=== PATIENT | female | born 1955 | race Caucasian/White ===

== ENCOUNTER 2016-10-30 10:28 | Day surgery (SDC) | payer BC ==
--- NOTE | ~2016-10-30 | OP ---
Record Of Operation [facility] [address] [place]. [address] NAME: ANABEL BARAHONA : 59 STATUS : [place] [facility] [place] PAT#: [id number] AGE: 61 ADM/REG DATE : 10/30/16 MR#: [id number] REPORT SERV DATE: 10/30/16 DICTATED BY: MOSHE RO DATE: 10/30/16 REPORT STATUS : Draft TRANSCRIBED BY: MODL DATE: 10/30/16 DATE OF PROCEDURE: 10/30/2016 PREOPERATIVE DIAGNOSES: 1. Left shoulder rotator cuff tear. 2. Left shoulder AC joint arthritis. 3. SLAP tear. POSTOPERATIVE DIAGNOSES: 1. Left shoulder rotator cuff tear. 2. Left shoulder AC joint arthritis. 3. SLAP tear. PROCEDURES: 1. Left shoulder arthroscopic rotator cuff repair. 2. Left shoulder arthroscopic distal clavicle resection. 3. Arthroscopic subacromial decompression. 4. Arthroscopic labral debridement. SURGEON: Moshe Ro MD. ANESTHESIA: General and preoperative block. SPECIMEN: None. ANTIBIOTICS: Ancef given prior to incision. HISTORY: The patient is a 61-year-old female with longstanding history of left shoulder pain. Treated conservatively, and she failed conservative treatment. We then obtained an MRI which showed a partial thickness rotator cuff tear. It was almost a full-thickness tear. We discussed the risks and benefits of the surgery with her as well as AC joint arthritis and she elected to proceed. We discussed the risks including cardiopulmonary complication, anesthesia, damage to surrounding tissues, failure to heal, and the continued pain were discussed. After discussing all of these risks, she elected to proceed. OPERATIVE NOTE: The patient was seen in the preoperative area, consented, and marked. We answered all the questions she had to her satisfaction. She has had a preoperative block and then taken back to the operative suite. We placed her in supine position. Underwent general anesthesia and then placed her in the beach chair position. We prepped and draped the left arm in sterile fashion then paused to perform a time-out confirming correct patient, procedure, diagnosis, and extremity. I made a standard posterior portal into the shoulder and then made an anterior portal based on the spinal needle localization. Once in the shoulder joint, her glenohumeral cartilage was intact on the humerus and the glenoid. She had a small 2 type SLAP tear which I debrided with the shaver. She also had anterior labral fraying which I debrided with the Record Of Operation [facility] [address] [address] NAME: ANABEL BARAHONA : 59 STATUS : [place] [facility] [place] PAT#: [id number] AGE: 61 ADM/REG DATE : 10/30/16 MR#: [id number] REPORT SERV DATE: 10/30/16 DICTATED BY: MOSHE RO DATE: 10/30/16 REPORT STATUS : Draft TRANSCRIBED BY: THOMAS DATE: 10/30/16 carolyn. We examined the subscapularis. She had small intrasubstance tearing of the subscapularis, which I debrided with a shaver, and then her biceps was intact. She had an obvious full-thickness tear of the rotator cuff from the joint and marked that position of the tear and then went up to the subacromial space. Once in the subacromial space, I performed this bursectomy with a shaver and a subacromial acromioplasty with a sydnee. I then performed a distal clavicle resection with a sydnee. I then identified the rotator cuff from above from the marked area. She had an obvious full-thickness tear from the above as well. We then prepared the tuberosity with a sydnee. Placed one anchor within the footprint adjacent to articular surface and then repaired the rotator cuff back to the anchor with three sutures. After the completion, we felt that we had appropriate repair of our tissues. We then exited the shoulder, closed the wounds. She was awakened with no complications, taken back to the PACU in stable condition. POSTOP PLAN: She will be discharged home when stable and follow up in one week. ROGELIO/THOMAS Moshe Ro MD / [id number] CC: MD Attila Barnes M.D.
[~2016-10-30 10:28] MED LIST: 8 HOUR650 MG PO; ALLEGRA180 PO; ASA5GR PO; ATEN25 PO; BYETTA10 SC; CRANBERRY EXTRACT; DETROL2 PO; FISH-EPA1000 MG; GLUCCHONDR PO; GLUCPH PO; HARD NAILS PO; IMDUR60 PO; LANTUS SC; LEXAPRO10 PO; MAGTRATE500 MG PO; NOVOPEN SC; PLAVIX PO; PRAVACHOL40 MG PO; SINGULAIR1 PO; SOMATAB PO; VITAMIN D31000 UNIT PO; ZANTAC150 MG PO; ZESTRIL5 MG PO; ZETIA PO
== END 2016-10-30 17:05 | disposition home or self-care (01) ==
LOC: SDC 10:28
PROVIDERS: Orthopaedic Surgery Sports Medicine
PROC: 0LB24ZZ Excision of Left Shoulder Tendon, Percutaneous Endoscopic Approach (ICD-10-PCS; principal; 2016-10-30 12:15)
PROC: 0RNK4ZZ Release Left Shoulder Joint, Percutaneous Endoscopic Approach (ICD-10-PCS; 2016-10-30 12:15)
PROC: 0PBB4ZZ Excision of Left Clavicle, Percutaneous Endoscopic Approach (ICD-10-PCS; 2016-10-30 12:15)
DX: M75.122 Complete rotator cuff tear or rupture of left shoulder, not specified as traumatic (principal); M19.012 Primary osteoarthritis, left shoulder; I10 Essential (primary) hypertension; E78.5 Hyperlipidemia, unspecified; K21.9 Gastro-esophageal reflux disease without esophagitis; I25.10 Atherosclerotic heart disease of native coronary artery without angina pectoris; Z98.1 Arthrodesis status; E66.9 Obesity, unspecified; Z68.31 Body mass index [BMI] 31.0-31.9, adult; E11.9 Type 2 diabetes mellitus without complications; F32.9 Major depressive disorder, single episode, unspecified; Z90.89 Acquired absence of other organs; Z98.890 Other specified postprocedural states
CPT/HCPCS: 82962; A9270-GY; C1713; J0690; J2250; J2405; J2710; J2795; J3010